=== PATIENT | female | born 1980 | race African-American/Black ===

== ENCOUNTER 2016-12-03 20:44 | Emergency (ER) | payer MEDICAID ==
[~2016-12-03] VITALS: Ht 160 cm; Wt 109.0 kg
[2016-12-03 21:43] VITALS: BP 152/84
[2016-12-03] MEDS ORDERED: IBUPROFEN 600MG TABLET PO ONE (21:45)
== END 2016-12-03 22:20 | disposition home or self-care (01) ==
LOC: ER 22:18
DX: J02.9 Acute pharyngitis, unspecified (principal); Z98.51 Tubal ligation status; Z88.0 Allergy status to penicillin
CPT/HCPCS: 99283